=== PATIENT | female | born 1935 | race Caucasian/White ===

== ENCOUNTER → 2017-09-06 | Outpatient (CLI) | payer MEDICARE | LOC: M.RAD 15:48 | DX: M41.86 Other forms of scoliosis, lumbar region (principal); M47.896 Other spondylosis, lumbar region; M85.88 Other specified disorders of bone density and structure, other site; M17.12 Unilateral primary osteoarthritis, left knee; M16.12 Unilateral primary osteoarthritis, left hip; M25.572 Pain in left ankle and joints of left foot ==

== ENCOUNTER → 2019-06-06 | Outpatient (CLI) | payer MEDICARE | LOC: M.RAD 14:22 | DX: M47.812 Spondylosis without myelopathy or radiculopathy, cervical region (principal) ==